=== PATIENT | male | born 1995 | race Caucasian/White ===

== ENCOUNTER 2016-11-18 01:15 | Emergency (ER) | payer OTHER ==
[~2016-11-18] VITALS: Ht 172.7 cm; Wt 70.5 kg
[2016-11-18 01:17] VITALS: BP 119/73
[2016-11-18 03:20] VITALS: PULSE 76
== END 2016-11-18 03:20 | disposition home or self-care (01) ==
LOC: COL.ER 01:15 → EDBD 01:22 → COL.ER 01:22
DX: F10.129 Alcohol abuse with intoxication, unspecified (principal)